=== PATIENT | female | born 1970 | race Caucasian/White ===

== ENCOUNTER 2016-05-27 13:58 | Emergency (ER) | payer BC ==
[~2016-05-27] VITALS: Ht 160 cm; Wt 82.0 kg
[2016-05-27 14:01] VITALS: Ht 160 cm; Wt 82.0 kg
[2016-05-27] MEDS ORDERED: HYDROCODONE/APAP (5/325) TAB PO ONE (14:30)
[2016-05-27] MEDS ORDERED: KETOROLAC 30 MG INJ IM STA (15:25)
[2016-05-27] MEDS ORDERED: ONDA4TAB8 PO (15:31)
[2016-05-27] MEDS ORDERED: IBUP-1542 PO (15:31)
[2016-05-27] MEDS ORDERED: HYDR-902 PO (15:31)
--- NOTE | 2016-05-27 15:45 | ERD ---
ER Documentation Chief Complaint Date/Time DATE: 05/27/16 TIME: 15:32 Chief Complaint dizziness , headcahe since yesterday ,bp @ home 185/98, no neuro deficits HPI This is a 45-year-old female who presents to the ED for dizziness and headache. Patient has a history of hypertension, BP at home yesterday was 185/ 98 and takes hydrochlorthiazide 25 mg daily. Patient complained of frontal, throbbing headache associated with dizziness when she woke up this morning. Patient also complained of palpitations and nausea this am. Denies any chest pain, fever, abdominal pain, visual disturbances, leg swelling, syncope, focal weakness or numbness. Patient's next PCP appointment is on June 06. ROS All systems reviewed and are negative except as per history of present illness. Medications Home Meds Active Scripts Ondansetron Hcl* (Zofran*) 4 Mg Tablet, 4 MG PO Q6H for NAUSEA AND/OR VOMITING, #30 TAB Prov:JOHN OREILLY 05/27/16 Ibuprofen* (Motrin*) 600 Mg Tab, 600 MG PO Q6H Y for PAIN AND OR ELEVATED TEMP, #30 TAB Prov:JOHN OREILLY 05/27/16 Hydrocodone/Acetaminophen ([place] 10-325 Tablet) 1 Each Tablet, 1 TAB PO Q6H Y for PAIN, #10 TAB Prov:JOHN OREILLY 05/27/16 PMhx/Soc Medical and Surgical Hx: pt denies Medical Hx, pt denies Surgical Hx History of Surgery: No Anesthesia Reaction: No Hx Neurological Disorder: No Hx Respiratory Disorders: No Hx Cardiac Disorders: No Hx Psychiatric Problems: No Hx Miscellaneous Medical Probl: No Hx Alcohol Use: No Hx Substance Use: No Hx Tobacco Use: No Smoking Status: Never smoker Physical Exam Vitals Vital Signs Date Time Temp Pulse Resp B/P Pulse Ox O2 Delivery O2 Flow Rate FiO2 05/27/16 14:01 98.1 82 18 158/83 98 Physical Exam Physical Exam CONST: Well-developed, well-nourished, in no acute distress. Nontoxic in appearance. HEENT: Atraumatic. Normal conjunctiva. EOM intact. TM intact. External ear is normal. Clear oropharnyx without erythema. No uvular deviation. Moist mucous membranes. Supple neck. No meningismus. No submandibular induration. RESP: Clear to auscultation bilaterally. No wheezing. CARDIO: Regular rate and rhythm, no murmurs. ABD: Soft, non tender, non distended. Normal bowel sounds. No McBurney's point tenderness. No guarding or rigidity. No peritoneal signs. SKIN: No petechiae or rashes. BACK: No midline or flank tenderness. EXT: No cyanosis or edema. Distal pulses equal and bilateral. NEURO: Awake and alert, appropriate for age. Results 24 hrs Current Medications Medications (Trade) Dose Ordered Sig/Nick Route PRN Reason Start Time Stop Time Status Last Admin Dose Admin Acetaminophen/ Hydrocodone Bitart ([place] (5/325)) 1 tab ONCE ONCE PO 05/27/16 14:30 05/27/16 14:34 DC 05/27/16 14:41 Ketorolac Tromethamine (Toradol) 30 mg ONCE STAT IM 05/27/16 15:25 05/27/16 15:27 DC Procedures/MDM The patient was given [place] in the department for headache. EKG read by Dr. Hogan: Rate/Rhythm: Regular rate and rhythm at a rate of 69 Intervals: Normal Impression: No evidence of ischemia or arrhythmia EMERGENCY DEPARTMENT COURSE/MEDICAL DECISION MAKING This is a 45-year-old female who comes to the emergency room secondary to complaints of elevated BP, headache, dizziness and palpitations this morning. Patient denies any chest pain, nausea, diaphoresis, numbness or weakness. Blood pressure is 158/83, pulse is 82 and saturating at 98% on room air. Upon reassessment, patient is still complaining of throbbing frontal headache after [place] was given. Case was discussed with Dr. Hogan and we agreed to administer a dose of Toradol IM. My primary diagnosis is . Secondary diagnosis is hypertension Differential diagnoses considered but not limited to TN, CVA, migraine, temporal arteritis. Pt is hemodynamically stable upon reassessment. The patient was discharged for outpatient management with a prescription for [place], ibuprofen and Zofran. The patient was advised to followup with their PMD in 1-2 days and to return to the Emergency Department if there are any new or worsening symptoms. The patient understood and agreed with the diagnosis, treatment and plan. Patient is stable for discharge at this time. headache Departure Diagnosis: Primary Impression: Headache Headache type: unspecified Headache chronicity pattern: acute headache Intractability: intractable Qualified Code: R51 - Acute intractable headache , unspecified headache type Additional Impressions: Hypertension Hypertension type: unspecified secondary hypertension Qualified Code: I15.9 - Secondary hypertension Dizziness Condition: Stable Patient Instructions: Self-Care for Headaches, High Blood Pressure ( Hypertension) [facility] Usted se he hecho un examen mdico de control que le indica que no est en alessandro condicin que requiera tratamiento urgente en el Departamento de Emergencia. Un estudio ms profundo y el tratamiento de irene condicin pueden esperar sin ningn riesgo hasta que usted sea atendida/o en el consultorio de irene mdico o alessandro cl cuauhtemoc. Es responsabilidad suya arreglar alessandro manav para el seguimiento del ellen. MANEJO DE CONDICIONES NO URGENTES EN EL FUTURO 1) Si usted tiene un mdico de atencin primaria: Usted debera llamar a irene mdico de atencin primaria antes de venir al departamento de emergencia. Despus de las horas de consultorio, irene doctor o irene asociado/a est disponible por telfono. El mdico o enfermero de florentino en el servicio telefnico puede asesorarle por jewel medio para atender el problema, o ellen contrario se puede programar alessandro manav. 2) Si usted no tiene un mdico de atencin primaria: Llame al mdico o clnica de referencia que aparece abajo amy las horas de consultorio para hacer alessandro manav para que le vean. CLINICAS: [facility] [phone] [facility] [phone] [facility] [phone] [facility] [phone] [address] [place] [phone] [facility] [phone] [address] [facility]. [facility] () Eric se he hecho un examen mdico de control que le indica que no est en alessandro condicin que requiera tratamiento urgente en el Departamento de Emergencia. Un estudio ms profundo y el tratamiento de irene condicin pueden esperar sin ningn riesgo hasta que usted sea atendida/o en el consultorio de irene mdico o alessandro cl cuauhtemoc. Es responsabilidad suya arreglar alessandro manav para el seguimiento del ellen. MANEJO DE CONDICIONES NO URGENTES EN EL FUTURO 1) Si usted tiene un mdico de atencin primaria: Usted debera llamar a irene mdico de atencin primaria antes de venir al departamento de emergencia. Despus de las horas de consultorio, irene doctor o irene asociado/a est disponible por telfono. El mdico o enfermero de florentino en el servicio telefnico puede asesorarle por jewel medio para atender el problema, o ellen contrario se puede programar alessandro manav. 2) Si usted no tiene un mdico de atencin primaria: Llame al mdico o condado institucions de referencia que aparece abajo amy las horas de consultorio para hacer alessandro manav para que le vean. SI USTED NO PUEDE PAGAR PARA RENAE UN MEDICO puede ir a: [facility] [id number] [place] [address] [facility] [address] [place] [address] FOR[facility]LY [facility] [address] [place] [address] PAR[address] [place]RE [facility] [address] [place] [address] Additional Instructions: Call your primary care doctor tomorrow for an appointment during the next 1-2 days. Return to the emergency department immediately should you have any new or worsening symptoms. Take all medications as directed. JOHN OREILLY May 27, 2016 15:44
[2016-05-27 16:53] VITALS: BP 144/86; PULSE 78; RESP 19; TEMP 98.5
== END 2016-05-27 16:54 | disposition home or self-care (01) ==
LOC: FTE 13:58
DX: R51 Headache (principal); I15.9 Secondary hypertension, unspecified
CPT/HCPCS: 93005; 96372; J1885; Z7502; Z7610

== ENCOUNTER 2016-07-07 10:16 | Emergency (ER) | payer BC ==
[~2016-07-07] VITALS: Wt 83.0 kg
[~2016-07-07 10:16] MED LIST: HYDR-902 PO; IBUP-1542 PO; ONDA4TAB8 PO
[2016-07-07] MEDS ORDERED: GABA600T PO (11:13)
[2016-07-07] MEDS ORDERED: HYDR-906 PO (11:13)
--- NOTE | 2016-07-07 11:15 | ERD ---
ER Documentation Chief Complaint Date/Time DATE: 07/07/16 TIME: 11:14 Chief Complaint R ANKLE PAIN X 3 DAYS HPI This 45-year-old female presents with right ankle pain worsening over the last 3 days. She has a history of open reduction internal fixation of the right ankle several years ago and is waiting ankle replacement. She is out of her Neurontin is requesting refill. She denies any new injury. She denies any fevers, redness, weakness. ROS All systems reviewed and are negative except as per history of present illness. Medications Home Meds Active Scripts Hydrocodone/Acetaminophen ([place] 5-325 Tablet) 1 Each Tablet, 1 EACH PO TID, # 14 TAB Prov:LIBBY ORTIZ MD 07/07/16 Gabapentin* (Neurontin*) 600 Mg Tablet, 600 MG PO BID, #60 TAB Prov:LIBBY ORTIZ MD 07/07/16 Ondansetron Hcl* (Zofran*) 4 Mg Tablet, 4 MG PO Q6H for NAUSEA AND/OR VOMITING, #30 TAB Prov:JOHN OREILLY 05/27/16 Ibuprofen* (Motrin*) 600 Mg Tab, 600 MG PO Q6H Y for PAIN AND OR ELEVATED TEMP, #30 TAB Prov:JOHN OREILLY 05/27/16 Hydrocodone/Acetaminophen ([place] 10-325 Tablet) 1 Each Tablet, 1 TAB PO Q6H Y for PAIN, #10 TAB Prov:JOHN OREILLY 05/27/16 Allergies Allergies: Coded Allergies: No Known Allergy (Unverified , 05/27/16) PMhx/Soc History of Surgery: No Anesthesia Reaction: No Hx Neurological Disorder: No Hx Respiratory Disorders: No Hx Cardiac Disorders: No Hx Psychiatric Problems: No Hx Miscellaneous Medical Probl: No Hx Alcohol Use: No Hx Substance Use: No Hx Tobacco Use: No Physical Exam Vitals Vital Signs Date Time Temp Pulse Resp B/P Pulse Ox O2 Delivery O2 Flow Rate FiO2 07/07/16 10:20 98.0 74 18 141/71 99 Physical Exam Const: [] Alert, not ill-appearing. Head: Atraumatic Eyes: Normal Conjunctiva ENT: Normal External Ears, Nose and Mouth. Neck: Full range of motion..~ No meningismus. Resp: Clear to auscultation bilaterally Cardio: Regular rate and rhythm, no murmurs Abd: Soft, non tender, non distended. Normal bowel sounds Skin: No petechiae or rashes Back: No midline or flank tenderness Ext: No cyanosis, or edema. There is some mild tenderness, swelling on the right ankle joint. There is healed surgical scars. The right lower extremity is neurovascular intact Neur: Awake and alert Psych: Normal Mood and Affect Results 24 hrs Current Medications Medications (Trade) Dose Ordered Sig/Nick Route PRN Reason Start Time Stop Time Status Last Admin Dose Admin Acetaminophen/ Hydrocodone Bitart ([place] (5/325)) 1 tab ONCE ONCE PO 07/07/16 11:30 07/07/16 11:31 07/07/16 11:10 Procedures/MDM Patient presents for acute on chronic right ankle pain due to previous open reduction internal fixation. Patient was apparently waiting ankle replacement. She will be given a refill of Neurontin and [place] 5 mg here. Patient is requesting some type of brace. She was placed in a right ankle stirrup splint and Lorenzo bandage. Patient was neurovascular intact after the splint and Lorenzo bandage. Patient was discharged home instructions to continue orthopedic follow -up for for more definitive treatment for her acute on chronic right ankle pain. There is no evidence of septic arthritis, history or signs to suggest new fracture and x-rays were deferred given no new injury. She should return for fevers, redness, new worsening symptoms. Departure Diagnosis: Primary Impression: Ankle pain Laterality: right Chronicity: chronic Qualified Code: M25.571 - Chronic pain of right ankle Condition: Stable Patient Instructions: Sprain, Ankle, No X-Ray Additional Instructions: See orthopedist as scheduled. Recheck for fevers, redness, new symptoms. LIBBY ORTIZ MD July 07, 2016 11:15
[2016-07-07] MEDS ORDERED: HYDROCODONE/APAP (5/325) TAB PO ONE (11:30)
== END 2016-07-07 11:47 | disposition home or self-care (01) ==
LOC: FTE 10:16
DX: M25.571 Pain in right ankle and joints of right foot (principal)
CPT/HCPCS: Z7502; Z7610; 99284

== ENCOUNTER 2016-07-17 19:57 | Emergency (ER) | payer BC ==
[~2016-07-17] VITALS: Ht 162.6 cm; Wt 84.5 kg
[~2016-07-17 19:57] MED LIST changes: +GABA600T PO; +HYDR-906 PO
[2016-07-17 19:59] VITALS: Ht 162.6 cm; Wt 84.5 kg
[2016-07-17] MEDS ORDERED: IBUPROFEN 600 MG TAB PO ONE (22:00)
[2016-07-17] MEDS ORDERED: DIPHTH/TET/ACEL PERTUSS (ADULT) 0.5 ML VIAL IM* ONE (22:00)
[2016-07-17] MEDS ORDERED: CEPH-443 PO (22:01)
[2016-07-17] MEDS ORDERED: HYDR-906 PO (22:01)
[2016-07-17] MEDS ORDERED: IBUP-1542 PO (22:01)
--- NOTE | 2016-07-17 22:14 | ERD ---
ER Documentation Chief Complaint Date/Time DATE: 07/17/16 TIME: 22:03 Chief Complaint cut LLE yesterday in shower HPI Patient is a 45-year-old female with past medical history of hypertension who presents to the emergency department with a cut to her left lower extremity occurred yesterday.. Patient states that she was in the shower when she cut her leg on the metal rim on which the glass shard or sides on. Patient states the bleeding was controlled yesterday however after attempting to clean out the wound today it started bleeding and. Patient does report some pain to her left lower leg. She is able to ablate however she reports pain. Patient denies any previous injuries or fractures in the past. Patient states her last tetanus vaccination was over 5 years ago. She denies hitting her head. Patient denies any fevers, chills, nausea, vomiting, headache, excessive sleepiness or loss of consciousness. ROS All systems reviewed and are negative except as per history of present illness. Medications Home Meds Active Scripts Cephalexin* (Keflex*) 500 Mg Capsule, 500 MG PO QID for 7 Days, CAP Prov:BRE MOHAN PA-C 07/17/16 Hydrocodone/Acetaminophen ([place] 5-325 Tablet) 1 Each Tablet, 1 TAB PO Q6H Y for PAIN, #7 TAB Prov:BRE MOHAN PA-C 07/17/16 Ibuprofen* (Motrin*) 600 Mg Tab, 600 MG PO Q6, #30 TAB Prov:BRE MOHAN PA-C 07/17/16 Hydrocodone/Acetaminophen ([place] 5-325 Tablet) 1 Each Tablet, 1 EACH PO TID, # 14 TAB Prov:LIBBY ORTIZ MD 07/07/16 Gabapentin* (Neurontin*) 600 Mg Tablet, 600 MG PO BID, #60 TAB Prov:LIBBY ORTIZ MD 07/07/16 Ondansetron Hcl* (Zofran*) 4 Mg Tablet, 4 MG PO Q6H for NAUSEA AND/OR VOMITING, #30 TAB Prov:JOHN OREILLY 05/27/16 Ibuprofen* (Motrin*) 600 Mg Tab, 600 MG PO Q6H Y for PAIN AND OR ELEVATED TEMP, #30 TAB Prov:JOHN OREILLY 05/27/16 Hydrocodone/Acetaminophen ([place] 10-325 Tablet) 1 Each Tablet, 1 TAB PO Q6H Y for PAIN, #10 TAB Prov:JOHN OREILLY 05/27/16 Allergies Allergies: Coded Allergies: No Known Allergy (Unverified , 05/27/16) PMhx/Soc History of Surgery: No Anesthesia Reaction: No Hx Neurological Disorder: No Hx Respiratory Disorders: No Hx Cardiac Disorders: Yes (HTN) Hx Psychiatric Problems: No Hx Miscellaneous Medical Probl: No Hx Alcohol Use: No Hx Substance Use: No Hx Tobacco Use: No Smoking Status: Never smoker FmHx Family History: No diabetes Physical Exam Vitals Vital Signs Date Time Temp Pulse Resp B/P Pulse Ox O2 Delivery O2 Flow Rate FiO2 07/17/16 19:59 98.3 107 18 164/94 95 Physical Exam GENERAL: Well-developed, well-nourished female. Appears in no acute distress. Eating in full sentences HEAD: Normocephalic, atraumatic. EYES: Pupils are equally reactive bilaterally. EOMs grossly intact. No conjunctival erythema. ENT: Moist mucous membranes. No uvula deviation. No kissing tonsils. NECK: Supple. No meningismus. Normal range of motion of the neck. LUNG: Clear to auscultation bilaterally. No rhonchi, wheezing, rales or coarse breath sounds. HEART: Regular rate and rhythm. No murmurs, rubs or gallops. EXTREMITIES: Equal pulses bilaterally. No peripheral clubbing, cyanosis or edema. No unilateral leg swelling. NEUROLOGIC: Alert and oriented. Moving all four extremities without any difficulty. Normal speech. Steady gait. SKIN: Normal color. Warm and dry. No rashes or lesions. 3 cm linear laceration noted to the patient's anterior martinez. No active bleeding. Results 24 hrs Current Medications Medications (Trade) Dose Ordered Sig/Nick Route PRN Reason Start Time Stop Time Status Last Admin Dose Admin Ibuprofen (Motrin) 600 mg ONCE ONCE PO 07/17/16 22:00 07/17/16 22:01 DC 07/17/16 22:34 Diphtheria/ Tetanus/Acell Pertussis (Adacel) 0.5 ml ONCE ONCE IM* 07/17/16 22:00 07/17/16 22:01 DC 07/17/16 22:36 Acetaminophen/ Hydrocodone Bitart ([place] (5/325)) 1 tab ONCE ONCE PO 07/17/16 23:30 07/17/16 23:30 DC Procedures/MDM ED COURSE: The patient was stable throughout ED course. I kept the patient and/or family informed of laboratory and diagnostic imaging results throughout the ED course. DIAGNOSTIC IMAGING: Read by radiologist. DIAGNOSTIC IMAGING REPORT Patient: HOOD QUIROGA : 1970 Age: 45 Sex: F MR #: [id number] DOS: 07/17/16 2155 Ordering MD: BRE MOHAN PA-C Location: [facility] Room/Bed: PROCEDURE: XR tibia / fibula. CLINICAL INDICATION: Trauma. TECHNIQUE: AP and lateral views of the left tibia/fibula were performed. COMPARISON: There are no similar studies submitted for comparison. FINDINGS: There is normal bone mineralization.There is no acute fracture or dislocation.No osseous lesion is identified. IMPRESSION: No acute fracture or subluxation. RPTAT: HIKT .Shine Segura MD, MD Date Time Electronically viewed and signed by .Shine Segura MD, on 07/17/2016 23:23 .T/ CC: BRE MOHAN PA-C MEDICATIONS GIVEN: Ibuprofen Patient tolerated medication well with no adverse reactions. Patient reported improvement in pain. MEDICAL DECISION MAKING: This is a 45-year-old female presents with a laceration to her left lower leg. Laceration occurred over 24 hours ago. Vital signs were reviewed. Patient was afebrile. Patient's wound was cleansed against and closed using Steri-Strips given the laceration occurred more than 24 hours ago. Patient will heal with secondary properties. Wound care was discussed with the patient. She was also given a tetanus vaccination today. Left tibia-fibula x-rays showed no acute fracture or subluxation. At this time, patient's presentation is most consistent with laceration. Low suspicion for tibia fracture, fibula fracture, retained foreign body, tendon injury, neurovascular injury. PRESCRIPTIONS: Keflex, [place], ibuprofen DISCHARGE: At this time, the patient is stable for discharge and outpatient management. Post-procedural wound care was discussed with the patient. The patient has been advised to return to the ER in 2 days for a wound check. I have instructed the patient to promptly return to the ER for any new or worsening symptoms including increasing pain, fever, warmth, redness or swelling. The patient and/ or family expressed understanding of and agreement with this plan. All questions were answered. Home care instructions were provided. Patient's blood pressure was elevated (>120/80) but appears stable without evidence of hypertensive emergency, hypertensive urgency or end-organ failure. I had discussion with the patient about the risks of hypertension. I have advised the patient to follow up with his/her primary care physician for outpatient monitoring and treatment for hypertension in 2-3 days. I have instructed the patient to return to the ER for any new or worsening symptoms including chest pain, shortness of breath, headache, blurred vision, confusion, nausea, vomiting or LOC. Of note, per nursing staff, patient eloped prior to receiving discharge paperwork. Departure Diagnosis: Primary Impression: Laceration Condition: Stable Patient Instructions: Laceration, All Additional Instructions: Call your primary care doctor TOMORROW for an appointment during the next 1-2 days.See the doctor sooner or return here if your condition worsens before your appointment time. Wound recheck advised in 2 days. Patient advised to take a full course of antibiotics. BRE MOHAN PA-C Jul 17, 2016 22:14
--- NOTE | 2016-07-17 23:24 | RADRPT ---
PROCEDURE: XR tibia / fibula. CLINICAL INDICATION: Trauma. TECHNIQUE: AP and lateral views of the left tibia/fibula were performed. COMPARISON: There are no similar studies submitted for comparison. FINDINGS: There is normal bone mineralization.There is no acute fracture or dislocation.No osseous lesion is i dentified. IMPRESSION: No acute fracture or subluxation. RPTAT: HIKT .Shine Segura MD, MD Date Time Electronically viewed and signed by .Shine Segura MD, on 07/17/2016 23:23 .T/
[2016-07-17] MEDS ORDERED: HYDROCODONE/APAP (5/325) TAB PO ONE (23:30)
== END 2016-07-17 23:20 | disposition left against medical advice (07) ==
LOC: FTE 19:57
DX: S81.812A Laceration without foreign body, left lower leg, initial encounter (principal); I10 Essential (primary) hypertension; W25.XXXA Contact with sharp glass, initial encounter; Y92.9 Unspecified place or not applicable; Z23 Encounter for immunization
CPT/HCPCS: 73590; 90471; 90715; 99284; Z7610

== ENCOUNTER 2017-01-19 07:46 | Day surgery (SDC) | payer BC ==
[2017-01-19] VITALS (11 sets, daily range): BP systolic 110–151; BP diastolic 66–86; PULSE 90–104; RESP 14–21; Ht 157.5 cm; Wt 82.6 kg
[~2017-01-19] VITALS: Ht 157.5 cm; Wt 82.6 kg
[~2017-01-19 07:46] MED LIST changes: +CEPH-443 PO
[2017-01-19] MEDS ORDERED: TRAZ100T15 PO (08:15)
[2017-01-19] MEDS ORDERED: AMLO-147 PO (08:15)
[2017-01-19] MEDS ORDERED: TRAM-40 PO (08:15)
[2017-01-19] MEDS ORDERED: SERT-165 PO (08:16)
[2017-01-19] MEDS ORDERED: ATOM40CA PO (08:16)
--- NOTE | 2017-01-19 10:06 | HPN ---
Date/Time of Note Date/Time of Note DATE: 01/19/17 TIME: 10:05 Interval H&P Admission Note Pt. seen H&P reviewed: No system changes MICHAEL CENTENO DPM Jan 19, 2017 10:05
[2017-01-19] MEDS ORDERED: POLYMYXIN/BACITRACIN 1L IRRIG ONE (10:11)
[2017-01-19] MEDS ORDERED: POLYMYXIN/BACITRACIN 1L IRRIG IRR ONE (10:15)
[2017-01-19] MEDS ORDERED: MIDAZOLAM 1 MG/ML 2 ML INJ ONE (10:26)
[2017-01-19] MEDS ORDERED: FENTAnyl 50 MCG/ML VIAL ONE (10:26)
[2017-01-19] MEDS ORDERED: PROPOFOL 20 ML ONE (10:26)
[2017-01-19] MEDS ORDERED: METOCLOPRAMIDE 10 MG INJ ONE (10:26)
[2017-01-19] MEDS ORDERED: ONDANSETRON 4 MG INJ ONE (10:26)
[2017-01-19] MEDS ORDERED: KETOROLAC 30 MG INJ ONE (10:27)
[2017-01-19] MEDS ORDERED: CEFAZOLIN 1 GM INJ ONE (10:33)
[2017-01-19] MEDS ORDERED: ONDANSETRON 4 MG INJ IV PRN (11:00)
[2017-01-19] MEDS ORDERED: DIPHENHYDRAMINE 50 MG INJ IV PRN (11:00)
[2017-01-19] MEDS ORDERED: HYDROmorphONE (0.2 MG/ML) 10ML SYG IV PRN ×3 (11:00)
[2017-01-19] MEDS ORDERED: OXYCODONE/ACETAMINOPHEN (5/325) TAB PO PRN ×2 (11:00)
[2017-01-19] MEDS ORDERED: MEPERIDINE 25 MG INJ IV PRN (11:00)
[2017-01-19] MEDS ORDERED: ROPIVACAINE 0.5 % 30 ML VIAL ONE (11:21)
--- NOTE | 2017-01-19 12:22 | SIPON ---
Date/Time of Note Date/Time of Note DATE: 01/19/17 TIME: 12:21 Operative Report Preoperative Diagnosis Painful hardware right ankle Right ankle pain Right ankle DJD Hx of prior ankle ORIF Postoperative Diagnosis Painful hardware right ankle Right ankle pain Right ankle DJD Hx of prior ankle ORIF Operation/Procedure Performed Right ankle hardware removal Intra-operative use and interpretation of fluoroscopy Surgeon see signature line assistant merchandise manager none Anesthesia: general Estimated blood loss: minimal Transfusion Required none Specimen Screw x 2 Grafts/Implants none Complications none MICHAEL CENTENO DPM Jan 19, 2017 12:22
--- NOTE | 2017-01-19 12:22 | OPR ---
Date/Time of Note Date/Time of Note DATE: 01/19/17 TIME: : Operative Report Procedure Date: Jan 19, 2017 Preoperative Diagnosis Painful hardware right ankle Right ankle pain S/P prior ORIF of right ankle fracture Right ankle DJD Postoperative Diagnosis Painful hardware right ankle Right ankle pain S/P prior ORIF of right ankle fracture Right ankle DJD Operation/Procedure Performed Right ankle hardware removal Intra operative use and interpretation of fluoroscopy Surgeon see signature line Third Officer none Anesthesia Type: general Estimated Blood Loss: minimal Transfusion none Specimen Screw x 2 from the right ankle Grafts/Implants none Tubes/Drains none Complications none Pt Condition Post Procedure: stable Disposition: PACU Indications This is a pleasant 46 year old female patient who has been 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 She suffers from painful hardware that is palpable and tender when wearing shoes and with pressure. Patient has failed the following treatments: shoe gear modification, activity modification, pain medication. Patient seeks surgical management. Recommended procedure: Hardware removal right ankle with use of intraoperative fluoroscopy. Risks and complications of this type of surgery was discussed with patient in great detail. Risks and complications discussed included, but are not limited to, postoperative infection, postoperative pain, hardware failure, malunion, nonunion, delayed union, failure of surgery to correct the problem, need for additional surgical procedures, deep venous thrombosis, limb loss and loss of life. Patient understands the discussion and agrees to the procedure. An informed consent was signed, obtained and placed in the chart. No guarantees or warrantees was given or implied as to the outcome of the procedure either in verbal or written form. Procedure Description The patient was seen in the preoperative area. The proposed surgery was discussed with patient in great detail. Risks and complications of this type of surgery was discussed with patient in great detail. Opportunity was given to patient to ask questions and all questions were answered. The patient acknowledges understanding of the discussion. An informed consent was then obtained, signed and placed in the chart. Patient was taken to the operating room and was placed on the operating table in the supine position. All bony prominences were padded properly. A timeout was called by the circulating nurse. Everyone in the operating room was agreeable to the timeout. The patient was then placed under general anesthesia by the anesthesiologist. All bony prominences were properly padded. The right foot and ankle was scrubbed, prepped and draped in the usual aseptic manner. Attention was directed to the right ankle. Intraoperative fluoroscopy was utilized to visualize the hardware. A small incision was made on the medial malleolus area using a #10 blade. Bleeders were cauterized as necessary. The head of the 2 screws were easily palpable and exposed. As I attempted to unscrew the first 1 , the screw came out about a centimeter and a half and then the head popped off. I attempted to remove the second screw and the head popped off as well. Next, the difficult screw set was brought in and both screws were easily removed with no complications. The area was flushed with copious amounts of sterile normal saline. The screw washers were also found and removed as well. Next, the skin was closed using 4-0 Monocryl in simple suture technique. Attention was next directed to the lateral malleolus. A 1.5 cm incision was made on the lateral malleolus. Dissection was deepened with care being taken to identify and protect vital neurovascular structures. The hardware was easily identified what is found to be very difficult to remove. Since patient is being prepped for total ankle replacement, the hardware inside the fibula is of no consequence so I left the hardware inside. The wound was flushed with copious loss of sterile normal saline and closed using 4-0 Monocryl simple suture technique. Postoperative injection of half percent Marcaine plain was given. Sterile dressing was applied to the right ankle. The patient tolerated procedure and anesthesia well. She was transferred to the recovery room with vital signs stable and vascular status intact to right lower extremity. The patient will be discharged home after postoperative monitoring. Postoperative orders were written. Patient will be followed up in the office in 1 week. MICHAEL CENTENO DPM Jan 19, 2017 12:22
--- NOTE | 2017-01-19 14:26 | RADRPT ---
PROCEDURE: Intraoperative fluoroscopic examination, OR RM#1 REMOVAL OF HARDWARE RIGHT ANKLE CLINICAL INDICATION: OR RM#1 REMOVAL OF HARDWARE RIGHT ANKLE TECHNIQUE: Multiple fluoroscopic views of the right ankle were obtained intraoperatively COMPARISON: none FINDINGS: 2 fluoroscopic views of the right ankle are stored. There is apparent removal of 2 screws placed thr ough the distal tibia. A total 6.1 seconds of fluoroscopic time was utilized. IMPRESSION: Fluoroscopic guidance for right ankle hardware removal. RPTAT: DD .Salty Mcwilliams MD, MD Date Time Electronically viewed and signed by .Salty Mcwilliams MD, on 01/19/2017 14:26 .T/
--- NOTE | 2017-01-19 18:07 | RADRPT ---
PROCEDURE: X-ray right ankle CLINICAL INDICATION: Postoperative right ankle TECHNIQUE: AP and lateral views of the right ankle COMPARISON: None available at the time of this interpretation. FINDINGS: Chronic fracture deformity at the distal articular tibia with mild narrowing of the lateral mortise. Likely partial articular collapse of the medial articular distal fibula. Suspected osteochondral de fect at the medial talar dome. A CT or MRI examination may be of further use. Nirmal fixation in the distal fibula. No evident hardware complication. Screw ghost holes in the calcan eus. IMPRESSION: 1. Nirmal fixator at the distal right fibula, without evident hardware complication. 2. Mild mortise na rrowing laterally status post remote fracture deformity at the distal right fibula. 3. Likely partial articular collapse at the medial articular distal fibula. 4. Suspected osteochondral defect at the medial talar dome. RPTAT: [facility]U Physician Tramaine Date Time Electronically viewed and signed by Physician Tramaine on 01/19/2017 18:07 IRVIN/
== END 2017-01-19 15:00 | disposition home or self-care (01) ==
LOC: SDS 07:46 → SUR 07:46
PROVIDERS: ATTEND Podiatrist Foot & Ankle Surgery
DX: T84.84XA Pain due to internal orthopedic prosthetic devices, implants and grafts, initial encounter (principal); Y83.8 Other surgical procedures as the cause of abnormal reaction of the patient, or of later complication, without mention of misadventure at the time of the procedure
CPT/HCPCS: 20680; 73600; 84703; 88300; J0690; J1170; J1885; J2175; J2250; J2405; J2765; J2795; J3010; Z7512; Z7610

== ENCOUNTER 2017-02-11 20:07 | Emergency (ER) | END 2017-02-12 02:49 | disposition home or self-care (01) ==

== ENCOUNTER 2017-08-26 12:22 | Inpatient (IN) | END 2017-08-29 16:20 | disposition home or self-care (01) | DRG 469 ==

== ENCOUNTER 2018-05-30 18:30 | Emergency (ER) | payer BC ==
[~2018-05-30] VITALS: Ht 157.5 cm; Wt 91.4 kg
[~2018-05-30 18:30] MED LIST changes: +AMLO-147 PO; +ARIP15TA3 PO; +ATOM40CA PO; -CEPH-443 PO; +CHOL100062 PO; +DULO60CA59 PO; +HYDR-3609 PO; -HYDR-902 PO; -HYDR-906 PO; -IBUP-1542 PO; +NAPR500T8 PO; -ONDA4TAB8 PO; +SERT-165 PO; +TRA100 PO
[2018-05-30 18:49] VITALS: BP 127/78; PULSE 124; RESP 17; Ht 157.5 cm; Wt 91.4 kg
[2018-05-30] MEDS ORDERED: KETOROLAC 60 MG INJ IM STA (20:32)
--- NOTE | 2018-05-30 20:41 | ERD ---
ER Documentation Chief Complaint Chief Complaint LT BACK AND FLANK PAIN RADIATING TO LT HIP - DENIES INJURY HPI 47-year-old female presents with complaint of left hip pain. States that she was at her daughter's game today and bent down when the pain occurred. Denies having any prior history of hip problems. States that walking makes it worse. Denies any treatments. Denies any numbness, tingling, incontinence, weakness, Fevers, ROS All systems reviewed and are negative except as per history of present illness. Medications Home Meds Active Scripts Hydrocodone/Acetaminophen (Hydrocodone-Acetamin 10-325 mg) 1 Each Tablet, 1 TAB PO Q6H PRN for PAIN 5-7 for 7 Days, #20 TAB Prov:MATTI DUNN MD 08/29/17 Naproxen* (Naproxen EC*) 500 Mg Tablet.dr, 500 MG PO BID for 7 Days, #14 TAB please take with milk or food Prov:MATTI DUNN MD 08/29/17 Gabapentin* (Neurontin*) 600 Mg Tablet, 600 MG PO BID, #60 TAB Prov:LIBBY ORTIZ MD 07/07/16 Reported Medications Atomoxetine Hcl (Strattera) 40 Mg Capsule, 40 MG PO DAILY, CAP 08/26/17 Duloxetine Hcl* (Duloxetine Hcl*) 60 Mg Capsule.dr, 60 MG PO DAILY, #30 CAP 08/26/17 Cholecalciferol* (Vitamin D3*) 1,000 Unit Tablet, 1000 UNIT PO DAILY, TAB 08/26/17 Aripiprazole* (Abilify*) 15 Mg Tablet, 15 MG PO DAILY, #30 TAB 08/26/17 Sertraline Hcl* (Sertraline Hcl*) 100 Mg Tablet, 200 MG PO DAILY, #60 TAB 01/19/17 Trazodone Hcl* (Trazodone Hcl*) 100 Mg Tablet, 100 MG PO QHS, #30 TAB 01/19/17 Amlodipine Besylate* (Amlodipine Besylate*) 10 Mg Tablet, 10 MG PO DAILY, #30 TAB 01/19/17 Allergies Allergies: Coded Allergies: No Known Allergy (Unverified , 08/26/17) PMhx/Soc History of Surgery: Yes (x3 ankle sx and hardware removed from ankle ) Anesthesia Reaction: No Hx Neurological Disorder: No Hx Respiratory Disorders: No Hx Cardiac Disorders: Yes (HTN, ) Hx Psychiatric Problems: No Hx Miscellaneous Medical Probl: Yes (RT ANKLE PAIN , DID, RT ANKLE , S/P ORIF RT ANKLE) Hx Alcohol Use: No Hx Substance Use: No Hx Tobacco Use: No FmHx Family History: No diabetes, No coronary disease, No other Physical Exam Vitals Vital Signs Date Temp Pulse Resp B/P (MAP) Pulse Ox O2 O2 Flow FiO2 Time Delivery Rate 05/30/18 99.2 124 17 127/78 93 18:49 (94) Physical Exam Const: No acute distress Head: Atraumatic Eyes: Normal Conjunctiva ENT: Normal External Ears, Nose and Mouth. Neck: Full range of motion. No meningismus. Resp: Clear to auscultation bilaterally Cardio: Regular rate and rhythm, no murmurs Abd: Soft, non tender, non distended. Normal bowel sounds Skin: No petechiae or rashes Back: No midline or flank tenderness. Full range of motion. No bony deformities step-offs or edema noted. Ext: No cyanosis, or edema. Positive straight leg raise on left side. Left hip is atraumatic with no edema, ecchymosis, or bony deformities noted. Full range of motion of the left hip. Overlying skin is intact. Neur: Awake and alert Psych: Normal Mood and Affect Results 24 hrs Laboratory Tests Test 05/30/18 20:50 POC Beta HCG, Qualitative NEGATIVE Current Medications Medications Dose Sig/Nick Start Time Status Last (Trade) Ordered Route PRN Stop Time Admin Dose Reason Admin Ketorolac 60 mg ONCE STAT 05/30/18 DC 05/30/18 Tromethamine IM 20:32 20:55 (Toradol) 05/30/18 20:34 1 tab ONCE ONCE 05/30/18 DC 05/30/18 Acetaminophen PO 21:00 20:54 / 05/30/18 21:01 Hydrocodone Bitart ([place] (5/325)) Prednisone 40 mg ONCE ONCE 05/30/18 DC 05/30/18 (Prednisone) PO 21:00 20:54 05/30/18 21:01 Procedures/MDM DIAGNOSTIC IMAGING REPORT Patient: HOOD QUIROGA : 1970 Age: 47 Sex: F MR #: [id number] DOS: 04/14/19 2030 Ordering MD: CRESCENCIO NEUMANN Location: [facility] Room/Bed: PROCEDURE: XR Hip. CLINICAL INDICATION: Left hip pain TECHNIQUE: AP and frog lateral views of the left hip were performed. COMPARISON: None. FINDINGS: There is normal mineralization and alignment. No fracture or osseous lesion is identified. The femoral head is normal in contour and the joint space preserved. The soft tissues are unremarkable. . RPTAT:HJJR IMPRESSION: Unremarkable left hip series. Physician Ludivina Date Time Electronically viewed and signed by Physician Ludivina on 05/30/2018 21:28 JR/ CC: CRESCENCIO NEUMANN [id number] X-ray was taken and results within normal limits. Patient's presentation resembles sciatica patient will be treated for such. Patient given Rx for prednisone and short course of [place] As well as ibuprofen to take as needed. I have low suspicion for neurovascular compromise, compartment syndrome, fracture, osteomyelitis, septic joint, or other emergent condition. Patient discharged with strict ER precautions. Patient advised to follow up with PMD. All questions answered at discharge. Departure Diagnosis: Primary Impression: Hip pain Laterality: left Qualified Codes: M25.552 - Pain in left hip Condition: Stable CRESCENCIO NEUMANN May 30, 2018 20:41
[2018-05-30] MEDS ORDERED: HYDROCODONE/APAP (5/325) TAB PO ONE (21:00)
[2018-05-30] MEDS ORDERED: predniSONE 20 MG TAB PO ONE (21:00)
[2018-05-30] MEDS ORDERED: HYDR-4011 PO (22:30)
[2018-05-30] MEDS ORDERED: IBUP-1542 PO (22:30)
[2018-05-30] MEDS ORDERED: PRED20TA PO (22:30)
== END 2018-05-30 23:43 | disposition home or self-care (01) ==
LOC: FTE 18:30
DX: M25.552 Pain in left hip (principal); I10 Essential (primary) hypertension
CPT/HCPCS: 73510; 81025; 96372; 99284; J1885; J7512; Z7610

== ENCOUNTER 2018-07-03 13:01 | Emergency (ER) | payer BC ==
[~2018-07-03] VITALS: Wt 84.0 kg
[~2018-07-03 13:01] MED LIST changes: +HYDR-4011 PO; +IBUP-1542 PO; +PRED20TA PO
[2018-07-03 13:04] VITALS: BP 145/91; PULSE 102; RESP 18
[2018-07-03] MEDS ORDERED: HYDROCODONE/APAP (5/325) TAB PO ONE (14:00)
[2018-07-03] MEDS ORDERED: NAPR-985 PO (14:54)
[2018-07-03] MEDS ORDERED: HYDR-4011 PO (15:07)
--- NOTE | 2018-07-03 16:46 | ERD ---
ER Documentation Chief Complaint Chief Complaint R ANKLE PAIN THATS CHRONIC. NO TRAUMA. PAIN WORSE LAST FEW DAYS. HPI 47-year-old female with no significant past medical history presenting to the emergency department with complaints of right ankle pain which began today. She states the pain is constant, sharp, 9/10 in severity and worse with walking. She denies any trauma or new injuries. She has history of right ankle surgery and states she has chronic pain secondary to this. Patient is not a smoker, she denies any recent long travel, she is not using control. ROS All systems reviewed and are negative except as per history of present illness. Medications Home Meds Active Scripts Hydrocodone/Acetaminophen ([place] 5-325 Tablet) 1 Each Tablet, 1 TAB PO Q6H PRN for PAIN, #5 TAB Prov:CRESCENCIO MARAVILLA PA-C 07/03/18 Naproxen* (Naprosyn*) 500 Mg Tablet, 500 MG PO BID PRN for PAIN AND/OR INFLAMMATION, #30 TAB Prov:CRESCENCIO MARAVILLA PA-C 07/03/18 Hydrocodone/Acetaminophen ([place] 5-325 Tablet) 1 Each Tablet, 1 TAB PO Q6H PRN for PAIN, #10 TAB Prov:CRESCENCIO NEUMANN 05/30/18 Ibuprofen* (Motrin*) 600 Mg Tab, 600 MG PO Q6H PRN for PAIN, #30 TAB Prov:CRESCENCIO NEUMANN 05/30/18 Prednisone* (Prednisone*) 20 Mg Tab, 40 MG PO DAILY for 4 Days, TAB Prov:CRESCENCIO NEUMANN 05/30/18 Hydrocodone/Acetaminophen (Hydrocodone-Acetamin 10-325 mg) 1 Each Tablet, 1 TAB PO Q6H PRN for PAIN 5-7 for 7 Days, #20 TAB Prov:MATTI DUNN MD 08/29/17 Naproxen* (Naproxen EC*) 500 Mg Tablet.dr, 500 MG PO BID for 7 Days, #14 TAB please take with milk or food Prov:MATTI DUNN MD 08/29/17 Gabapentin* (Neurontin*) 600 Mg Tablet, 600 MG PO BID, #60 TAB Prov:LIBBY ORTIZ MD 07/07/16 Reported Medications Atomoxetine Hcl (Strattera) 40 Mg Capsule, 40 MG PO DAILY, CAP 08/26/17 Duloxetine Hcl* (Duloxetine Hcl*) 60 Mg Capsule.dr, 60 MG PO DAILY, #30 CAP 08/26/17 Cholecalciferol* (Vitamin D3*) 1,000 Unit Tablet, 1000 UNIT PO DAILY, TAB 08/26/17 Aripiprazole* (Abilify*) 15 Mg Tablet, 15 MG PO DAILY, #30 TAB 08/26/17 Sertraline Hcl* (Sertraline Hcl*) 100 Mg Tablet, 200 MG PO DAILY, #60 TAB 01/19/17 Trazodone Hcl* (Trazodone Hcl*) 100 Mg Tablet, 100 MG PO QHS, #30 TAB 01/19/17 Amlodipine Besylate* (Amlodipine Besylate*) 10 Mg Tablet, 10 MG PO DAILY, #30 TA B 01/19/17 Allergies Allergies: Coded Allergies: No Known Allergy (Unverified , 08/26/17) PMhx/Soc History of Surgery: Yes (x3 ankle sx and hardware removed from ankle ) Anesthesia Reaction: No Hx Neurological Disorder: No Hx Respiratory Disorders: No Hx Cardiac Disorders: Yes (HTN, ) Hx Psychiatric Problems: Yes (anxity, depression , ) Hx Miscellaneous Medical Probl: Yes (RT ANKLE PAIN , DID, RT ANKLE , S/P ORIF RT ANKLE) Hx Alcohol Use: No Hx Substance Use: No Hx Tobacco Use: No FmHx Family History: No diabetes Physical Exam Vitals Vital Signs Date Temp Pulse Resp B/P (MAP) Pulse Ox O2 O2 Flow FiO2 Time Delivery Rate 07/03/18 97.2 102 18 145/91 98 13:04 (109) Physical Exam Const: No acute distress Head: Atraumatic Eyes: Normal Conjunctiva ENT: Normal External Ears, Nose and Mouth. Neck: Full range of motion. No meningismus. Resp: Clear to auscultation bilaterally Cardio: Regular rate and rhythm, no murmurs Skin: No petechiae or rashes Back: No midline or flank tenderness Ext: Well-healed incision sites noted to the anterior right ankle. Limited range of motion of the right ankle secondary to pain. Mild tenderness palpation of the medial and lateral malleolus of the right lower extremity. The patient is neurovascularly intact distally. The patient did have some right calf tenderness to palpation. Neur: Awake and alert Psych: Normal Mood and Affect Results 24 hrs Current Medications Medications Dose Sig/Nick Start Time Status Last (Trade) Ordered Route PRN Stop Time Admin Dose Reason Admin 1 tab ONCE ONCE 07/03/18 DC 07/03/18 Acetaminophen PO 14:00 13:59 / 07/03/18 14:01 Hydrocodone Bitart ([place] ()) [place] [id number] Radiology Main Line: [phone] DIAGNOSTIC IMAGING REPORT Patient: HOOD QUIROGA : 1970 Age: 47 Sex: F MR #: [id number] DOS: 07/03/18 0000 Ordering MD: CRESCENCIO MARAVILLA PA-C Location: [facility] Room/Bed: PROCEDURE: XR Ankle. CLINICAL INDICATION: Pain TECHNIQUE: AP, oblique and lateral views of the right ankle were performed. COMPARISON: DR HOWELL 08/26/2017 FINDINGS: There is normal mineralization and alignment. No acute fracture or osseous lesion is identified. There is a tibia talar prosthesis which is intact. There is an intramedullary K-wire traversing the distal fibula. There is a linear lucency in the right distal fibula, unchanged from the prior studies. there is soft tissue swelling. RPTAT: AA IMPRESSION: Unchanged appearance of the right ankle status post replacement with a tibiotalar prosthesis. Unchanged appearance of the fibula with a metallic K-wire in place. Soft tissue swelling. No acute fracture. .Taj Silva MD, MD Date Time Electronically viewed and signed by .Taj Silva MD, MD on 07/03/2018 14:39 .S/ CC: CRESCENCIO MARAVILLA PA-C [id number] [place] [id number] Radiology Main Line: [phone] DIAGNOSTIC IMAGING REPORT Patient: HOOD QUIROGA : 1970 Age: 47 Sex: F [id number]: 07/03/18 0000 Ordering MD: CRESCENCIO MARAVILLA PA-C Location: [facility] Room/Bed: PROCEDURE: US Lower extremity Venous. CLINICAL INDICATION: Right leg edema, pain TECHNIQUE: Multiple sonographic images of the right lower extremity deep venous system was obtained utilizing grayscale, color-flow, compressive sonography and doppler imaging with augmentation. The images were reviewed on a PACS workstation. COMPARISON: None. FINDINGS: There is normal compressibility and flow within the right common femoral, femoral, posterior tibial, peroneal and popliteal veins. RPTAT: AA IMPRESSION: No sonographic evidence for deep venous thrombosis. .Taj Silva MD, MD Date Time Electronically viewed and signed by .Taj Silva MD, MD on 07/03/2018 14:32 .S/ CC: CRESCENCIO MARAVILLA PA-C [id number] Procedures/MDM 47-year-old female presenting to the emergency department complaining of right calf and right ankle pain. Ultrasound the right lower extremity showed no evidence of DVT. X-ray of the right ankle showed no acute findings. Full reports interpreted by the radiologist may be viewed above. Patient stable and appropriate for discharge and further outpatient management with prescriptions to treat her symptoms at home. Patient's extremity symptoms have stabilized while they have been evaluated in the department and are appropriate for outpatient follow up. No evidence of compartment syndrome, neurologic injury, vascular injury, open joint, open fracture, tendon laceration, or foreign body. Departure Diagnosis: Primary Impression: Chronic pain of right ankle Condition: Fair Patient Instructions: Ankle Surgery Additional Instructions: Call your primary care doctor TOMORROW for an appointment during the next 1-2 days.See the doctor sooner or return here if your condition worsens before your appointment time. CRESCENCIO MARAVILLA PA-C July 03, 2018 16:46
== END 2018-07-03 15:12 | disposition home or self-care (01) ==
LOC: FTE 13:01
DX: M25.571 Pain in right ankle and joints of right foot (principal); I10 Essential (primary) hypertension
CPT/HCPCS: 73610; 93971; 99284; Z7610

== ENCOUNTER 2018-08-01 08:33 | Emergency (ER) | payer BC ==
[~2018-08-01] VITALS: Ht 157.5 cm; Wt 89.3 kg
[~2018-08-01 08:33] MED LIST changes: +NAPR-985 PO
[2018-08-01 08:37] VITALS: BP 115/73; PULSE 97; RESP 21; Ht 157.5 cm; Wt 89.3 kg
[2018-08-01] MEDS ORDERED: HYDROCODONE/APAP (5/325) TAB PO ONE (09:30)
[2018-08-01] MEDS ORDERED: IBUP800T48 PO (11:19)
[2018-08-01] MEDS ORDERED: ACET325T33 PO (11:19)
--- NOTE | 2018-08-01 11:21 | ERD ---
ER Documentation Chief Complaint Chief Complaint LT SIDED HEAD PAIN, LT CHEEK SWELLING AND RT ANKLE PAIN S/P SLIP AND FALL HPI 47-year-old female presents status post mechanical fall yesterday. She reports that she fell walking on the ground after tripping on a corner object. She denies losing consciousness however she did hit her head and is reporting a headache since yesterday that is not going away. This is her first fall. She denies any altered mental status and has not been acting differently per her . She also injured her right ankle during this fall. She has a history of total right ankle replacement in 2018 and she is concerned about her right ankle at this time. She reports tenderness along the lateral side of her right ankle. She reports that this pain is strong 8 out of 10 pain that does not radiate anywhere. She reports that she has her Ortho provider and she will be following up with him in the next week or 2. ROS All systems reviewed and are negative except as per history of present illness. Medications Home Meds Active Scripts Acetaminophen* (Tylenol*) 325 Mg Tablet, 1 TAB PO Q4 PRN for PAIN AND OR ELEVATED TEMP, #20 TAB Prov:SIERRA LECHUGA PA-C 08/01/18 Ibuprofen* (Motrin*) 800 Mg Tab, 800 MG PO Q6H PRN for PAIN AND OR ELEVATED TEMP, #30 TAB Prov:SIERRA LECHUGA PA-C 08/01/18 Hydrocodone/Acetaminophen ([place] 5-325 Tablet) 1 Each Tablet, 1 TAB PO Q6H PRN for PAIN, #5 TAB Prov:CRESCENCIO MARAVILLA PA-C 07/03/18 Naproxen* (Naprosyn*) 500 Mg Tablet, 500 MG PO BID PRN for PAIN AND/OR INFLAMMATION, #30 TAB Prov:CRESCENCIO MARAVILLA PA-C 07/03/18 Hydrocodone/Acetaminophen ([place] 5-325 Tablet) 1 Each Tablet, 1 TAB PO Q6H PRN for PAIN, #10 TAB Prov:CRESCENCIO NEUMANN 05/30/18 Ibuprofen* (Motrin*) 600 Mg Tab, 600 MG PO Q6H PRN for PAIN, #30 TAB Prov:CRESCENCIO NEUMANN 05/30/18 Prednisone* (Prednisone*) 20 Mg Tab, 40 MG PO DAILY for 4 Days, TAB Prov:CRESCENCIO NEUMANN 05/30/18 Hydrocodone/Acetaminophen (Hydrocodone-Acetamin 10-325 mg) 1 Each Tablet, 1 TAB PO Q6H PRN for PAIN 5-7 for 7 Days, #20 TAB Prov:MATTI DUNN MD 08/29/17 Naproxen* (Naproxen EC*) 500 Mg Tablet.dr, 500 MG PO BID for 7 Days, #14 TAB please take with milk or food Prov:MATTI DUNN MD 08/29/17 Gabapentin* (Neurontin*) 600 Mg Tablet, 600 MG PO BID, #60 TAB Prov:LIBBY ORTIZ MD 07/07/16 Reported Medications Atomoxetine Hcl (Strattera) 40 Mg Capsule, 40 MG PO DAILY, CAP 08/26/17 Duloxetine Hcl* (Duloxetine Hcl*) 60 Mg Capsule.dr, 60 MG PO DAILY, #30 CAP 08/26/17 Cholecalciferol* (Vitamin D3*) 1,000 Unit Tablet, 1000 UNIT PO DAILY, TAB 08/26/17 Aripiprazole* (Abilify*) 15 Mg Tablet, 15 MG PO DAILY, #30 TAB 08/26/17 Sertraline Hcl* (Sertraline Hcl*) 100 Mg Tablet, 200 MG PO DAILY, #60 TAB 01/19/17 Trazodone Hcl* (Trazodone Hcl*) 100 Mg Tablet, 100 MG PO QHS, #30 TAB 01/19/17 Amlodipine Besylate* (Amlodipine Besylate*) 10 Mg Tablet, 10 MG PO DAILY, #30 TAB 01/19/17 Allergies Allergies: Coded Allergies: No Known Allergy (Unverified , 08/26/17) PMhx/Soc History of Surgery: Yes (x3 ankle sx and hardware removed from ankle ) Anesthesia Reaction: No Hx Neurological Disorder: No Hx Respiratory Disorders: No Hx Cardiac Disorders: Yes (HTN, ) Hx Psychiatric Problems: Yes (anxity, depression , ) Hx Miscellaneous Medical Probl: Yes (RT ANKLE PAIN , DID, RT ANKLE , S/P ORIF RT ANKLE) Hx Alcohol Use: No Hx Substance Use: No Hx Tobacco Use: No Smoking Status: Never smoker FmHx Family History: No diabetes Physical Exam Vitals Vital Signs Date Temp Pulse Resp B/P (MAP) Pulse Ox O2 O2 Flow FiO2 Time Delivery Rate 08/01/18 97.0 97 21 115/73 96 08:37 (87) Physical Exam Const: No acute distress Head: Slight half centimeter hematoma present on back of left skull. No open fractures no active bleeding present Eyes: Normal Conjunctiva ENT: Normal External Ears, Nose and Mouth. Neck: Full range of motion. Resp: Clear to auscultation bilaterally Cardio: Regular rate and rhythm, no murmurs Abd: Soft, non tender, non distended. Normal bowel sounds Skin: No petechiae or rashes Back: No midline or flank tenderness Ext: Right ankle:: Right ankle, tenderness to the lateral aspect of her right ankle. Good 2+ pulses. Good range of motion and sensation present. Neur: Awake and alert Psych: Normal Mood and Affect Results 24 hrs Current Medications Medications Dose Sig/Nick Start Time Status Last (Trade) Ordered Route PRN Stop Time Admin Dose Reason Admin 1 tab ONCE ONCE 08/01/18 DC 08/01/18 Acetaminophen PO 09:30 09:15 / 08/01/18 09:31 Hydrocodone Bitart ([place] (5/325)) Procedures/MDM ED COURSE: The patient was stable throughout ED course. I kept the patient informed of laboratory and diagnostic imaging results throughout the ED course. DIAGNOSTIC IMAGING: Read by radiologist. PROCEDURE: CT Brain without contrast. CLINICAL INDICATION: Fall, swelling. TECHNIQUE: A CT of the brain without contrast was performed utilizing axial sections from the skull base through the vertex. One or more the following does reduction techniques were utilized: Automated exposure control, adjustment of the mA/ or kV according to patient's size, or use of iterative reconstruction technique. Total exam CTDIvol is 39 MGy and DLP is 634 mGy-cm. DICOM images are available. COMPARISON: None available. FINDINGS: The ventricles and sulci are age-appropriate. There is no intracranial hemorrhage, mass effect or midline shift. No abnormal intra-axial or extra- axial fluid collections are seen. The miranda/white matter differentiation is preserved. No acute skull abnormality is noted. The visualized paranasal sinuses are essentially clear. Left occipital scalp swelling and hematoma are noted without underlying skull fracture. IMPRESSION: 1. No acute intracranial hemorrhage, transcortical infarction or mass effect. 2. Left occipital scalp swelling and hematoma without underlying skull fracture. RPTAT: HFN .Garth Yeager MD, MD Date Time Electronically viewed and signed by .Garth Yeager MD, MD on 08/01/2018 10:17 PROCEDURE: XR Ankle. CLINICAL INDICATION: Pain post fall, history of total ankle replacement in 2018 TECHNIQUE: 3 views of the right ankle were performed. COMPARISON: 07/03/2018 FINDINGS: Again noted are postsurgical changes of a tibiotalar ankle prosthesis which is intact. There is a small 1-2 rim of lucency between the tibial prosthetic component and distal tibia. There is also a K-wire traversing across the distal fibula with a small focus of sclerosis within the distal fibula at the level of the tibiotalar articulation. There is also cortical thickening and sclerosis along the medial distal tibia adjacent to the prosthesis with an oblique linear lucency superior medial to the prosthesis adjacent to the medial tibial plafond. There is mild soft tissue swelling around the ankle. RPTAT: QQ IMPRESSION: 1. Intact tibiotalar prosthesis with an oblique linear lucency within the medial distal tibia just above the tibial plafond in which a nondisplaced fracture is not excluded with cortical thickening and sclerosis. A follow-up CT ankle may be obtained for additional evaluation if clinically indicated. 2. Intact K-wire traversing across the distal fibula. .Bethanie Green MD, Date Time Electronically viewed and signed by .Bethanie Green MD, on 08/01/2018 11:09 MEDICATIONS GIVEN: [place] Patient tolerated medication well with no adverse reactions. Patient reported improvement in pain. MEDICAL DECISION MAKING: Patient is a 47-year-old female presenting after a mechanical fall yesterday. She reports that she hit her head but did not lose consciousness. She reports that there is a bump on her head and she has been having a headache since yesterday that has not been improving. She also reports having right ankle pain. She has a history of total right ankle replacement 2018. During exam neuro exam was normal. Patient did have a slight hematoma and abrasion back of her skull. However no open cuts or active bleeding was present. CT scan was done to rule out any brain bleeds. She was most concerned about her right ankle. X-ray of the right ankle shows that the prostate was intact. Patient reports that she will be following up with her Ortho in the next week or 2. H&P and other data not c/w emergent process (eg. Subarachnoid hemorrhage, acute vertebral or carotid dissection, intracranial mass, epidural hematoma, subdural hematoma, dural venous sinus thrombosis, giant cell arteritis, pseudotumor cerebri, meningitis, mass, intracranial bleed). Vital signs were reviewed. Patient is afebrile. Patient was not hypoxic. Patient was hemodynamically stable. PRESCRIPTION: Ibuprofen, tylenol DISCHARGE: At this time, patient is stable for discharge and outpatient management. I have instructed the patient to follow-up with his/her primary care physician in 1-2 days. I have discussed with the patient the possibility of needing to see a specialist for further workup and imaging studies if symptoms persist. I have instructed the patient to promptly return to the ER for any new or worsening symptoms including increased pain, fever, nausea, vomiting, weakness or LOC. The patient and/or family expressed understanding of and agreement with this plan. All questions were answered. Home care instructions were provided. Disclaimer: Inadvertent spelling and grammatical errors are likely due to EHR/dictation software use and do not reflect on the overall quality of patient care. Also, please note that the electronic time recorded on this note does not necessarily reflect the actual time of the patient encounter. Departure Diagnosis: Primary Impression: Fall Encounter type: initial encounter Qualified Codes: W19.XXXA - Unspecified fall, initial encounter Additional Impression: Pain in right ankle and joints of right foot Condition: Fair Patient Instructions: Fall, Mechanical Referrals: COMMUNITY CLINICS YOU HAVE RECEIVED A MEDICAL SCREENING EXAM AND THE RESULTS INDICATE THAT YOU DO NOT HAVE A CONDITION THAT REQUIRES URGENT TREATMENT IN THE EMERGENCY DEPARTMENT. FURTHER EVALUATION AND TREATMENT OF YOUR CONDITION CAN WAIT UNTIL YOU ARE SEEN IN YOUR DOCTORS OFFICE WITHIN THE NEXT 1-2 DAYS. IT IS YOUR RESPONSIBILITY TO MAKE AN APPOINTMENT FOR FOLOW-UP CARE. IF YOU HAVE A PRIMARY DOCTOR --you should call your primary doctor and schedule an appointment IF YOU DO NOT HAVE A PRIMARY DOCTOR YOU CAN CALL OUR PHYSICIAN REFERRAL HOTLINE AT IF YOU CAN NOT AFFORD TO SEE A PHYSICIAN YOU CAN CHOSE FROM THE FOLLOWING [facility] [address] [facility] [address] [facility] [address] [facility] [address] [facility] [address] [facility]. [facility] [address]. [facility] YOU HAVE RECEIVED A MEDICAL SCREENING EXAM AND THE RESULTS INDICATE THAT YOU DO NOT HAVE A CONDITION THAT REQUIRES URGENT TREATMENT IN THE EMERGENCY DEPARTMENT. FURTHER EVALUATION AND TREATMENT OF YOUR CONDITION CAN WAIT UNTIL YOU ARE SEEN IN YOUR DOCTORS OFFICE WITHIN THE NEXT 1-2 DAYS. IT IS YOUR RESPONSIBILITY TO MAKE AN APPOINTMENT FOR FOLOW-UP CARE. IF YOU HAVE A PRIMARY DOCTOR --you should call your primary doctor and schedule and appointment IF YOU DO NOT HAVE A PRIMARY DOCTOR YOU CAN CALL OUR PHYSICIAN REFERRAL HOTLINE AT . IF YOU CAN NOT AFFORD TO SEE A PHYSICIAN YOU CAN CHOSE FROM THE FOLLOWING [facility]: [facility] [address] [place] [address] [facility] [address] [place] [address] [facility] [address] [place] [address] [facility] 7 a.m.- 11 p.m. Every Day of the Week NO APPOINTMENT OR AUTHORIZATION NEEDED Additional Instructions: Follow up with ortho in next 1-2 days. Call your primary care doctor TOMORROW for an appointment during the next 1-2 days.See the doctor sooner or return here if your condition worsens before your appointment time. SIERRA LECHUGA PA-C Aug 01, 2018 11:21
== END 2018-08-01 12:30 | disposition left against medical advice (07) ==
LOC: FTE 08:33
DX: M25.571 Pain in right ankle and joints of right foot (principal); I10 Essential (primary) hypertension; R51 Headache; Z96.661 Presence of right artificial ankle joint
CPT/HCPCS: 70450; 73610; 99284; Z7610